=== PATIENT | female | born 1990 | race Caucasian/White ===

== ENCOUNTER 2020-02-14 11:57 | Inpatient (IN) | payer OTHER, SELFPAY ==
[~2020-02-14] VITALS: Ht 165.1 cm; Wt 186.0 kg
[~2020-02-14 11:57] MED LIST: PRENATAL VITS.
[2020-02-14 12:12] VITALS: BP 119/67
[2020-02-14] MEDS ORDERED: ACETAMINOPHEN 325 MG TAB PO ONE (12:15)
[2020-02-14] MEDS ORDERED: NACL 0.9% 1,000 ML IV ONE (12:20)
--- NOTE | 2020-02-14 12:22 | NUR ---
PT WHEELCHAIR ASSISTED TO BED 01
--- NOTE | 2020-02-14 12:35 | NUR ---
PT C/O PRODUCTIVE COUGH WITH WHILE PHLEGM, SOB, FEVER X 2 DAYS, TOOK TYLENOL AND MOTRIN 2 HRS AGO. DENIES CP, N/V/D, SICK CONTACT. HR EVEN BUT TACHYCARDIC; PATIENT STATES PAIN OF 7/10 AT THIS TIME; VSS; PATIENT POSITIONED FOR COMFORT; HOB ELEVATED; BEDRAILS UP X2; BED DOWN. ER MD MADE AWARE OF PT STATUS. PT IS IN ISO ROOM AND ON MONITOR.
[2020-02-14 12:45] LABS: BASOPHILS # (AUTO) 0.1 K/uL (0.00-0.22); BASOPHILS % (AUTO) 0.9 % (0.0-2.0); EOSINOPHILS % (AUTO) 0.1 % (0.0-4.0); HEMATOCRIT 40.2 % (36-48); LYMPHOCYTES # (AUTO) 2.1 K/uL (2.5-16.5); LYMPHOCYTES % (AUTO) 23.7 % (20.5-51.1); MEAN CORPUSCULAR HEMOGLOBIN 29 pg (27-31); MEAN CORPUSCULAR HGB CONC 32 g/dL (33-37); MEAN CORPUSCULAR VOLUME 88.2 fL (80-94); MONOCYTES # (AUTO) 0.6 K/uL (0.8-1.0); MONOCYTES % (AUTO) 6.2 % (1.7-9.3); NEUTROPHILS # (AUTO) 6.3 K/uL (1.8-7.7); NEUTROPHILS % (AUTO) 69.1 % (42.2-75.2); PLATELET COUNT (AUTO) 270 K/uL (140-450); RED BLOOD CELL COUNT(AUTO) 4.56 MIL/uL (4.20-5.40); RED CELL DISTRIBUTION WIDTH 13.3 % (11.6-13.7); WHITE BLOOD COUNT (AUTO) 9.1 K/uL (4.8-10.8)
--- NOTE | 2020-02-14 12:52 | NUR ---
COVID SWAB AND FLU SWAB OBTAINED AT BEDSIDE AND SENT TO THE LAB.
--- NOTE | 2020-02-14 13:00 | NUR ---
TWO COLD PACKS PLACED ON PT'S AXILLARY AREAS.
[2020-02-14 13:09] LABS: ALBUMIN 2.9 g/dL (3.4-5.0); ANION GAP 12.2 (8-16); CARBON DIOXIDE 30.5 mmol/L (21-32); CREATININE 0.9 mg/dL (0.6-1.3); POTASSIUM 3.7 mmol/L (3.5-5.1); TOTAL BILIRUBIN 0.6 mg/dL (0.0-1.0)
--- NOTE | 2020-02-14 13:10 | NUR ---
XRAY IS AT BEDSIDE.
[2020-02-14 13:11] LABS: LACTATE DEHYDROGENASE 324 U/L (81-234)
[2020-02-14 13:24] LABS: PROTHROMBIN TIME 10.1 secs (10.8-13.4)
[2020-02-14] MEDS ORDERED: AZITHROMYCIN 250 MG TAB PO ONE (13:25)
[2020-02-14] MEDS ORDERED: cefTRIAXone 1,000 MG VIAL ONE (13:31)
[2020-02-14 13:33] LABS: C-REACTIVE PROTEIN QUANT 18.8 mg/dL (0.0-0.9)
--- NOTE | 2020-02-14 14:10 | NUR ---
PT IS RESTING IN THE BED.
[2020-02-14] MEDS ORDERED: HYDROcodone/APAP 5/325 MG 1 TAB TAB PO PRN ×2 (15:00)
[2020-02-14] MEDS ORDERED: ACETAMINOPHEN 325 MG TAB PO PRN (15:00)
[2020-02-14] MEDS ORDERED: ONDANSETRON 4 MG/2 ML VIAL IVP PRN (15:00)
--- NOTE | 2020-02-14 15:15 | NUR ---
PT IS USING BATHROOM VIA BEDSIDE COMMODES.
--- NOTE | 2020-02-14 15:19 | NUR ---
RECEIVED VERBAL ORDER FROM DR. SAMANO TO GIVE PT ROCEPHIN 1G IVF STARTING TOMORROW.
[2020-02-14] MEDS: NACL 0.9% 1,000 ML IV SCH (15:28)
--- NOTE | 2020-02-14 15:28 | NUR ---
PT STATES SHE IS STILL NOT ABLE TO URINATE AT THIS TIME.
--- NOTE | 2020-02-14 17:00 | NUR ---
URINE SAMPLE OBTAINED AT BEDSIDE.
--- NOTE | 2020-02-14 17:00 | NUR ---
ASSISTED PT TO USE BATHROOM VIA BEDSIDE COMMODES.
--- NOTE | 2020-02-14 17:07 | NUR ---
OBTAINED VERBAL CONSENT FROM PT TO GIVE HER SISTER DEJA AGUILERA MEDICAL UPDATES. SPOKE WITH DEJA AGUILERA @ [phone].
[2020-02-14 17:56] LABS: APPEARANCE,URINE CLOUDY (CLEAR); BILIRUBIN,URINE 1+ (NEGATIVE); BLOOD, URINE NEGATIVE (NEGATIVE); COLOR,URINE BROWN (YELLOW); LEUKOCYTE ESTERASE ,URINE NEGATIVE (NEGATIVE); NITRITE, URINE NEGATIVE (NEGATIVE); PH,URINE 5.5 (5.0-9.0); UGLUCOSE 1+ (NEGATIVE)
--- NOTE | 2020-02-14 18:31 | NUR ---
PT IS RESTING IN THE BED WITH VSS.
--- NOTE | 2020-02-14 19:18 | NUR ---
REPORT RECEIVED FROM AMBER PALACIO FOR CONTINUITY OF CARE.
--- NOTE | 2020-02-14 19:20 | NUR ---
Pt report given to HAKEEM Thompson. Transfer of care at this time.
--- NOTE | 2020-02-14 19:59 | NUR ---
PT ON 6L NC AND SPO2 90%. NO RESP DISTRESS NOTED.
--- NOTE | 2020-02-14 22:00 | NUR ---
PT USING BEDSIDE COMMODE.
--- NOTE | 2020-02-15 00:15 | NUR ---
PT BEING TRANSFERRED TO TELE VIA [facility].
--- NOTE | 2020-02-15 00:20 | NUR ---
Patient will be admitted to care of DR SAMANO. Admited to TELE. Will go to room 118-A. Belongings list completed. Report to ARMAAN PALACIO.
[2020-02-15 01:00] VITALS: BP 128/50
--- NOTE | 2020-02-15 01:00 | NUR ---
RECEIVED REPORT FROM REGISTRY NURSE. PT IS AXOX4; AMHARIC SPEAKING. PT IS COVID-19 POSITIVE. RESPIRATIONS ARE EVEN AND UNLABORED, BREATHING TO 6LPM NC; SPO2: 94%. TELE MONITOR ATTACHED, SINUS TACHYCARDIA ON THE MONITOR. RFA 20G IV IS PATENT AND INTACT, WITH IV FLUIDS RUNNING PER ORDERS. MRSA SPECIMEN COLLECTED. PT ORIENTED TO THE ROOM; CALL LIGHT, LIGHTS, TV, PHONE. PROVIDED THE PATIENT WITH WATER. SAFETY MEASURES IN PLACE, CALL LIGHT WITHIN REACH, BED IN LOW POSITION. NO DISTRESS NOTED. WILL CONTINUE TO MONITOR.
--- NOTE | 2020-02-15 02:51 | NUR ---
PT COMPLAINS OF 5/10 HEADACHE PAIN. PRN PO NORCO GIVEN; MEDICATION EDUCATION PROVIDED. WILL REASSESS PAIN. PT IS SITTING UP IN BED WATCHING TV. NO ACUTE DISTRESS NOTED. WILL CONTINUE TO MONITOR.
[2020-02-15] MEDS: NACL 0.9% 1,000 ML IV SCH (03:26)
[2020-02-15 04:00] VITALS: BP 122/53
--- NOTE | 2020-02-15 07:21 | NUR ---
PATIENT HAS BEEN SCREENED AND CATEGORIZED MODERATE NUTRITION RISK. PATIENT WILL BE SEEN WITHIN 3-5 DAYS OF ADMISSION. 02/17/20-02/19/20 PRECIOUS SANTOS MS, RDN
--- NOTE | 2020-02-15 07:24 | NUR ---
ENDORSED TO DAYSHIFT NURSE, FOR CONTINUITY OF CARE. PT IS IN STABLE CONDITION.
--- NOTE | 2020-02-15 07:25 | NUR ---
RECEIVED PATIENT FROM NIGHT NURSE. PATIENT IS AWAKE AND ALERT. SITTING UP IN BED COMFORTABLY. RESP EVEN AND UNLABORED ON 6L NC. DENIES OF ANY SOB OR PAIN AT THIS TIME. PLAN OF CARE DISCUSSED WITH PATIENT. PATIENT VERBALIZED UNDERSTANDING. CALL LIGHT WITHIN REACH. WILL CONTINUE WITH CARE.
[2020-02-15 08:00] VITALS: BP 122/59
[2020-02-15 08:22] LABS: BASOPHILS % (AUTO) 0.4 % (0.0-2.0); HEMATOCRIT 39.2 % (36-48); HEMOGLOBIN 12.8 g/dL (12.0-16.0); LYMPHOCYTES # (AUTO) 2.5 K/uL (2.5-16.5); LYMPHOCYTES % (AUTO) 25.8 % (20.5-51.1); MEAN CORPUSCULAR HEMOGLOBIN 29 pg (27-31); MEAN CORPUSCULAR HGB CONC 33 g/dL (33-37); MONOCYTES # (AUTO) 0.5 K/uL (0.8-1.0); MONOCYTES % (AUTO) 5.2 % (1.7-9.3); NEUTROPHILS # (AUTO) 6.6 K/uL (1.8-7.7); NEUTROPHILS % (AUTO) 68.6 % (42.2-75.2); PLATELET COUNT (AUTO) 279 K/uL (140-450); RED CELL DISTRIBUTION WIDTH 13.7 % (11.6-13.7); WHITE BLOOD COUNT (AUTO) 9.6 K/uL (4.8-10.8)
[2020-02-15 08:42] LABS: ALBUMIN 2.7 g/dL (3.4-5.0); ANION GAP 10.5 (8-16); CARBON DIOXIDE 30.3 mmol/L (21-32); CREATININE 0.8 mg/dL (0.6-1.3); MAGNESIUM 2.1 mg/dL (1.8-2.4); POTASSIUM 3.8 mmol/L (3.5-5.1); TOTAL BILIRUBIN 0.5 mg/dL (0.0-1.0)
[2020-02-15] MEDS ORDERED: ENOXAPARIN 40 MG/0.4 ML SYR SUBQ SCH (09:00)
[2020-02-15] MEDS: BENZONATATE 100 MG CAPLF PO SCH ×3 (09:02→17:02)
--- NOTE | 2020-02-15 09:24 | NUR ---
MORNING ROUTINE MEDICATIONS GIVEN PER ORDER. PATIENT IS AWAKE AND ALERT. PATIENT HAS A MILD DRY COUGH, DENIES ANY SOB ON 6L NC. PATIENT TOLERATED MEDICATIONS WELL. DENIES PAIN AT THIS TIME. RIGHT FA 20 PATENT IVF NS 80 ML/HR. CALL LIGHT WITHIN REACH. WILL CONTINUE TO MONITOR.
[2020-02-15 12:00] VITALS: BP 142/62
--- NOTE | 2020-02-15 12:20 | NUR ---
PATIENT IS SITTING ON CHAIR BY BEDSIDE. NO NOTED DISTRESS. PATIENT CONTINUES ON 6L NC. O2SAT 92%. DENIES OF PAIN AT THIS TIME. CALL LIGHT WITHIN REACH. WILL CONTINUE TO MONITOR.
[2020-02-15] MEDS ORDERED: ED NON STOCK ORDER 1 EA MISC IV ONE (13:10)
[2020-02-15] MEDS ORDERED: AZITHROMYCIN 250 MG in DEXTROSE 5% 250 ML IV SCH (14:00)
--- NOTE | 2020-02-15 14:14 | NUR ---
PATIENT IS ENCOURAGED TO PROVIDE A SPUTUM SPECIMEN. CUP BY BEDSIDE. INSTRUCTED PATIENT TO CALL NURSE ONCE COLLECTED. PATIENT VERBALIZED UNDERSTANDING. ZITHROMAX IVPB STARTED. NO NOTED DISTRESS. CALL LIGHT WITHIN REACH. WILL CONTINUE TO MONITOR.
[2020-02-15 16:00] VITALS: BP 119/66
--- NOTE | 2020-02-15 17:25 | NUR ---
PATIENT IS SITTING ON CHAIR BY BEDSIDE. RESP EVEN AND UNLABORED. CONTINUES ON 6L NC. GIVEN TYLENOL PRN PER REQUEST FOR HEADACHE. WILL REASSESS FOR EFFECTIVENESS. ENCOURAGED TO USE CALL LIGHT NEEDED FOR ASSIST. PATIENT VERBALIZED UNDERSTANDING.
[2020-02-15] MEDS: CHLORHEXADINE GLUC 2% CLOTH TP SCH (18:02)
[2020-02-15] MEDS ORDERED: remdesivir COMMUNICATION ORDER 1 EA MISC MC PRN (19:20)
--- NOTE | 2020-02-15 19:20 | NUR ---
ENDORSED PATIENT TO NIGHT NURSE. PATIENT IN STABLE CONDITION.
--- NOTE | 2020-02-15 19:45 | NUR ---
RECEIVED REPORT AT BEDSIDE FROM ROSARIO PALACIO DAYSHIFT NURSE AT BEDSIDE FOR CONTINUITY OF CARE, PT IN STABLE CONDITION.
[2020-02-15 20:00] VITALS: BP 134/72
--- NOTE | 2020-02-15 20:30 | NUR ---
PT SITTING AT THE EDGE OF THE BED, WITH C/O NAUSEA. PT ASSISTED WITH BED HOOKS. 02 STATING AT 84-87% WITH 6 LITERS N/C. T 98.6 P 86 R 22 B/P 122/61. CALLED RT TO REQUEST OXYMIZER DUE TO LOW 02 ON THE N/C. PT HAD NO C/O OF SOB.
--- NOTE | 2020-02-15 21:00 | NUR ---
PT 120MCG LOVENOX SHOT WAS UNABLE TO BE GIVEN DUE TO PLUNGER WAS PULLED BY MISTAKE WHEN CAP WAS PULLED OFF, MEDICATION SPILT OUT. 2 LOVENOX SHOTS OF 60MCG TO MAKE 120. PT GIVEN A TOTAL OF 3 SHOTS TO REACH THE ORDERED 150MCG. PT ALSO GIVEN REQUESTED ZOFRAN IVP FOR NAUSEA.
--- NOTE | 2020-02-15 21:30 | NUR ---
PT WAS NOTED MOVING AROUND IN BED 02 WAS AT 80-82% CALLED RT TO RE-EVALUATE PT AND POSSIBLE PLACE ON OXYMIZER.
--- NOTE | 2020-02-15 22:06 | NUR ---
CALLED TO BEDSIDE PT DESAT TO 75% 6LNC PT WAS PLACED ON 10L OXY PT SPO2 87% AND STEADILY SLOWLY CLIMBING
[2020-02-15] MEDS ORDERED: ENOXAPARIN 60 MG/0.6 ML SYR SUBQ ONE (22:35)
--- NOTE | 2020-02-15 22:38 | NUR ---
CALLED TO BEDSIDE PT SPO2 LOW 80s PULSE OX AND OXY MASK READJUSTED AND SLOWLY COMING BACK UP SPO2 87% HR 99
[2020-02-15] MEDS: ENOXAPARIN 120 MG/0.8 ML SYR SUBQ SCH (22:44)
[2020-02-15] MEDS: ENOXAPARIN 30 MG/0.3 ML SYR SUBQ SCH (22:45)
--- NOTE | 2020-02-15 23:00 | NUR ---
PT C/O FO 03/23 HEADACHE , HOWEVER SHE DIDN'T WANT NORCO AND SAID THAT AFTER RELIEVING HER H/A NORCO GAVE HER ANOTHER HEADACHE. WILL SPEAK WITH PRIMARY/OR TWENTY ONE DEALER MD, REGARDING PT REQUESTS. PT STATING AT 90% WITH 10 LITERS OXYMIZER.
[2020-02-15] MEDS ORDERED: DEXTROSE 50% 50 ML SYR IVP PRN (23:35)
[2020-02-16] VITALS: BP 122/61
[2020-02-16] MEDS: oxyCODONE/APAP 5/325 MG 1 TAB TAB PO PRN (00:01)
--- NOTE | 2020-02-16 00:10 | NUR ---
SPOKE WITH ORTHOPEDIC SHOES SALESPERSON MD MCLAUGHLIN REGARDING PT REQUEST HE ORDERED PERCOCET 1 TAB FOR SEVERE PAIN . NORCO FOR SEVERE PAIN WAS D/C'D. ALSO SPOKE WITH MD REGARDING BLOOD GLUCOSE LEVEL OF THE LAST BLOOD DRAW. (301) (PT DENIES ANY HX OF DM2) . HE ORDERED HBA1C WELL F/S AND S/S PRN. PT INFORMED OF NEW ORDERS, SHE WAS GIVEN 1 TAB PERCOCET FOR C/O OF SEVERE HEADACHE. COMMODE PLACED AT BEDSIDE FOR TOILETING NEEDS. V/S FOLLOWS: T 97.3 P 103 R 20 B/P 134/72 02 93% WITH 10 LITERS OXYMIZER.
[2020-02-16] MEDS: guaiFENesin/CODEINE 100/10MG 5 ML UDC PO PRN ×2 (01:14→15:21)
--- NOTE | 2020-02-16 02:00 | NUR ---
PT IN BED ASLEEP NO S/S OF PAIN OR DISTRESS NOTED , PT WAS FOUND WITH OXYMIZER OFF. OXYMIZER PLACED BASK ON NOSE 02 WAS AT 79, BUT STARTED TO CLIMB UPWARDS OF 88% WILL CONTINUE TO MONITOR PT FOR 02 AND DISCOMFORT. ALL DROPLET AND UNIVERSAL FALLS PROTOCOL IN PLACE.
[2020-02-16 04:00] VITALS: BP 140/80
--- NOTE | 2020-02-16 04:00 | NUR ---
PT IN BED V/S FOLLOWS: T 98.0 P 93 R 20 B/P 140/80 02 93 WITH 15 LITERS OXYMIZER. PT ASSISTED TO COMMODE AND BACK. ALL DROPLET PRECAUTIONS IN PLACE.
--- NOTE | 2020-02-16 06:30 | NUR ---
PT FINGERSTICK IS 289, GIVEN 6 UNITS OF HUMALOG COVERAGE, SPOKE WITH RT DU TO PT 02 STAT DROPPING , PT PLACED ON 15LITERS 02 VIA NON REBREATHER MASK. 02 UP TO 90%.
[2020-02-16 06:39] LABS: BASOPHILS % (AUTO) 0.1 % (0.0-2.0); HEMATOCRIT 36.7 % (36-48); HEMOGLOBIN 11.6 g/dL (12.0-16.0); LYMPHOCYTES # (AUTO) 2.8 K/uL (2.5-16.5); LYMPHOCYTES % (AUTO) 23.2 % (20.5-51.1); MEAN CORPUSCULAR HEMOGLOBIN 28 pg (27-31); MEAN CORPUSCULAR HGB CONC 32 g/dL (33-37); MEAN CORPUSCULAR VOLUME 89.5 fL (80-94); MONOCYTES # (AUTO) 0.4 K/uL (0.8-1.0); MONOCYTES % (AUTO) 3.4 % (1.7-9.3); NEUTROPHILS % (AUTO) 73.3 % (42.2-75.2); PLATELET COUNT (AUTO) 318 K/uL (140-450); RED CELL DISTRIBUTION WIDTH 13.7 % (11.6-13.7); WHITE BLOOD COUNT (AUTO) 12.3 K/uL (4.8-10.8)
[2020-02-16 06:53] LABS: ANION GAP 7.2 (8-16); CREATININE 0.8 mg/dL (0.6-1.3); POTASSIUM 4.2 mmol/L (3.5-5.1)
[2020-02-16] MEDS: INSULIN LISPRO SLIDING SCALE 100 UNITS/ML VIAL SUBQ PRN ×4 (06:57→21:48)
[2020-02-16] MEDS: BLOOD GLUCOSE MONITORING 1 DEV DEV FS SCH ×4 (07:00→21:00)
--- NOTE | 2020-02-16 07:15 | NUR ---
RECEIVED BEDSIDE REPORT FROM ROUGH AND TRUING MACHINE OPERATOR NURSE, ERNESTO, FOR CONTINUITY OF CARE. AAOX4, ABLE TO MAKE NEEDS KNOWN. PATIENT IS ON 15LPM VIA NONREBREATHER. DENIES OF ANY SOB OR PAIN AT THIS TIME. IV SITE ON THE R HAND 24G RUNNING TKO. PLAN OF CARE DISCUSSED WITH PATIENT AND VERBALIZED UNDERSTANDING. DROPLET ISOLATION IN PLACE FOR + COVID-19. CALL LIGHT WITHIN REACH. WILL CONTINUE WITH CARE.
[2020-02-16 07:34] LABS: MAGNESIUM 2.2 mg/dL (1.8-2.4); PHOSPHORUS 2.9 mg/dL (2.5-4.9)
[2020-02-16 08:00] VITALS: BP 138/75
--- NOTE | 2020-02-16 08:10 | NUR ---
V/S TAKEN AND IS WNL. PATIENT IS ON THE NON-REBREATHER MASK AT 15LPM O2, ASLEEP AND IN BED. NO SIGNS OF DISTRESS NOTED. WILL CONTINUE TO MONITOR.
--- NOTE | 2020-02-16 09:56 | NUR ---
PATIENT'S NON-REBREATHER MASK IS ON THE FLOOR. PATIENT AWAKENS WITH SHAKING AND CLAIMS TO HAVE NO SOB OR PAIN. V/S TAKEN WITH SAO2 AT 75%. WILL REPORT TO RT, CHARGE NURSE, AND MD. WILL CONTINUE TO MONITOR.
--- NOTE | 2020-02-16 09:58 | NUR ---
CALLED RT PUNEET ABOUT PATIENT'S DESATURATION TO 75%. RT WILL ASSESS PATIENT. CHARGE NURSE, TYSON, IS AWARE AND STATES RAPID RESPONSE NOT TO BE CALLED UNTIL RT EVALUATES PATIENT. WILL CONTINUE TO MONITOR.
[2020-02-16] MEDS: DEXAMETHASONE 4 MG/ML VIAL IVP SCH (10:04)
[2020-02-16] MEDS: BENZONATATE 100 MG CAPLF PO SCH ×3 (10:04→16:55)
--- NOTE | 2020-02-16 10:05 | NUR ---
MORNING MEDICATIONS GIVEN. RT BY THE BEDSIDE, ENCOURAGING PATIENT TO DEEP BREATH SAO2 AT 84% AND SLOWLY INCREASING ON 15LPM O2 VIA NON-REBREATHER. PATIENT COMPLAINS OF NO PAIN, NO SHORTNESS OF BREATH, JUST CLAIMS TO BE REALLY TIRED. WILL CONTINUE TO MONITOR.
--- NOTE | 2020-02-16 10:10 | NUR ---
DR. MCLAUGHLIN ON THE PHONE WITH RTPUNEET, NEW ORDERS TO PLACE 6LPM O2 VIA NC WITH 15LPM O2 VIA NON-REBREATHER MASK TO KEEP SAO2 ABOVE 87%. WILL FOLLOW THROUGH. WILL CONTINUE TO MONITOR.
[2020-02-16] MEDS: ENOXAPARIN 120 MG/0.8 ML SYR SUBQ SCH ×2 (10:11→21:52)
[2020-02-16] MEDS: ENOXAPARIN 30 MG/0.3 ML SYR SUBQ SCH ×2 (10:12→21:52)
--- NOTE | 2020-02-16 10:18 | NUR ---
was called to room due to pt desat to 75% pt was on 100% nrb at the time, molly olea at bedside, talked to dr. morrell and doctor ordered to place 6lnc with the nrb and o2 sat came up to 87%
[2020-02-16] MEDS ORDERED: CLINICAL MONITORING MC PRN (10:25)
[2020-02-16] MEDS ORDERED: remdesivir 200 mg in NACL 0.9% 100 ML IV SCH (11:00)
[2020-02-16 12:00] VITALS: BP 119/72
--- NOTE | 2020-02-16 12:25 | NUR ---
10 UNITS OF INSULIN GIVEN FOR BLOOD SUGAR OF 354. NO SIGNS OF DISTRESS NOTED, PATIENT CLAIMS TO STILL BE REALLY SLEEPY AND SAO2 REMAINS TO BE AT 88%, 15LPM O2 VIA NON-REBREATHER MASK AND 6LPM O2 VIA NC GIVEN SIMULTANEOUSLY. ENCOURAGED TO DEEP BREATH AND PRONE, PATIENT VERBALIZES UNDERSTANDING. WILL CONTINUE TO MONITOR.
--- NOTE | 2020-02-16 13:00 | NUR ---
DR. MCLAUGHLIN CLOTH HANDLER WITH PATIENT REGARDING PLASMA TRANSFUSION AND UPDATES ABOUT CONDITION. PATIENT TEACHINGS ABOUT BLOOD/PLASMA TRANSFUSION GIVEN BY DR. MCLAUGHLIN AND PATIENT VERBALIZES UNDERSTANDING. WILL CONTINUE TO MONITOR.
--- NOTE | 2020-02-16 13:25 | NUR ---
PATIENT HAS SIGNED CONVALESCENT PLASMA/ BLOOD TRANSFUSION CONSENT. PATIENT VERBALIZES UNDERSTANDING AND NO FURTHER QUESTIONS WERE ASKED. WILL CONTINUE TO MONITOR.
--- NOTE | 2020-02-16 14:55 | NUR ---
FOUND PATIENT DESATURATED AT 65%, NON-REBREATHER MASK AND NASAL CANNULA WAS REMOVED BY PATIENT. MASK AND NASAL CANNULA WERE REINSERTED AND SAO2 INCREASE TO 90%. PATIENT ABLE TO BE AWAKEN BUT IS CONFUSED. EXPLAINED THE NECESSITY OF NON-REBREATHER MASK AND NASAL CANNULA REPEATEDLY AND PATIENT VERBALIZES UNDERSTANDING. WILL REPORT TO CHARGE NURSE, WILL CONTINUE TO MONITOR.
--- NOTE | 2020-02-16 15:34 | NUR ---
CALLED RT TEIXEIRA ABOUT PATIENT'S DESATURATION OF 85%, NON-REBREATHER MASK AND NASAL CANNULA STILL IN PLACE. WILL CONTINUE TO MONITOR.
[2020-02-16 16:00] VITALS: BP 119/75
[2020-02-16] MEDS: CHLORHEXADINE GLUC 2% CLOTH TP SCH (16:55)
--- NOTE | 2020-02-16 17:30 | NUR ---
PATIENT'S NON-REBREATHER MASKED IS FOUND AWAY FROM THE PATIENT, REPEATEDLY GAVE TEACHINGS AND BENEFITS OF MAINTAINING MASK, PATIENT VERBALIZES UNDERSTANDING. WILL CONTACT MD ABOUT REPEATED INCIDENT. WILL CONTINUE TO MONITOR.
--- NOTE | 2020-02-16 17:35 | NUR ---
PAGED DR. IQBAL ABOUT PATIENT'S NEED FOR RESTRAINTS DUE TO REPEATED REMOVAL OF NON-REBREATHER MASK AND NASAL CANNULA. WILL CONTINUE TO MONITOR.
--- NOTE | 2020-02-16 17:44 | NUR ---
PATIENT PLACED ON RESTRAINTS, PATIENT IS AWARE AND VERBALIZES UNDERSTANDING. NO SIGNS OF DISTRESS NOTED. SAO2 INCREASED TO 93%. WILL CONTINUE TO MONITOR.
--- NOTE | 2020-02-16 19:15 | NUR ---
ENDORSED TO FAMILY SOCIOLOGIST RN, ERNESTO, FOR CONTINUITY OF CARE.
--- NOTE | 2020-02-16 19:15 | NUR ---
ENDORSEMENT RECEIVED FROM DEEPAK PALACIO DAYSHIFT NURSE FOR CONTINUITY OF CARE.
[2020-02-16 20:00] VITALS: BP 136/89
--- NOTE | 2020-02-16 20:28 | NUR ---
PT IN BED SITTING UP WITH RESTRAINTS RELEASED AND MASK OVER FACE. NASAL CANNULA RUNNING 6 LITERS REPOSITIONED ON FACE. PT IS AOX3-4 WITH NO C/O OF PAIN SHE CONTINUES TO HAVE A DRY AND NONPRODUCTIVE COUGH. PT WAS ASSISTED TO THE COMMODE. PT ALSO RECEIVED ASSISTANCE WITH EATING AND DRINKING AT BEDSIDE. V/S FOLLOWS: T 98.4 P 103 R 28 AND SHALLOW PT ON 15 LITERS NON REBREATHER AND 6 LITERS NASAL CANNULA SHE IS STATING BETWEEN 84-86%. OTHER V/S FOLLOWS: T 98.4 P 103 B/P 137/88. ALL DROPLET PRECAUTIONS IN PLACE.
--- NOTE | 2020-02-16 20:45 | NUR ---
PT LINENS CHANGED , SHE HAD POOR APPETITE AT THIS TIME, SHE WAS MADE COMFORTABLE AND SOFT RESTRAINTS PLACE BACK ON WRISTS. IV SITE ON RFA 20 GUAGE INTACT AND RUNNING TO [facility]. FAMILY UPDATED.
--- NOTE | 2020-02-16 21:45 | NUR ---
PT HEARD YELLING DOWN THE HALLWAY FOR HELP. PT FOUND IN BED WITH MASK OFF OF MOUTH AND NOSE.. PT ALSO PULLED OUT HER IV SITE. RAPID RESPONSE WAS CALLED AND PT GIVEN NEW IV SITE ON LEFT HAND 22 GUAGE. MD EID SUGGEST THAT PT BE PLACED ON A BIPAP MACHINE. PT PLACED ON BIPAP MACHINE 02 WENT UP TO THE LOW 90;S. PT GIVEN ALL SCHEDULED MEDS OF LOVENOX SB SHOT 150MCG (2 SHOTS) WELL A FINGERSTICK WHICH WAS 309. PT GIVEN SQ OF HUMALOG COVERAGE PER S/S. V/S FOLLOWS: T 97.7 P 82 R 38 P 82 02 90% B/P 127/81. PT PLACED BACK ON RESTRAINTS DUE TO CONFUSION.
--- NOTE | 2020-02-16 21:50 | NUR ---
TURNTABLE ENGINEER CALLED FOR DESATURATION. PT WAS SWITCHED FROM NRB MASK TO BiPAP. BiPAP SETTINGS IPAP 16, EPAP 8, BACK RR 12, FiO2 100%. MACHINE PLUGGED IN RED OUTLET. ALARMS SET AND AUDIBLE. PT TOLERATING WELL. WE CONTINUE TO MONITOR PT.
[2020-02-17] VITALS (11 sets, daily range): BP systolic 87–137; BP diastolic 52–89
--- NOTE | 2020-02-17 | NUR ---
PAGED DR. LUNDBERG WAS PAGED. CALLED BACK, MADE HIM AWARE ABOUT ORDER FOR CONVALESCENT PLASMA TO BE ORDERED BY HIM.
--- NOTE | 2020-02-17 03:19 | NUR ---
PAGED DR. SRIVASTAVA, CALLED BACK. REPORTED TO DR. SRIVASTAVA THAT MASTIC FLOOR LAYER WAS CALLED ON PT FOR DESAT. SWITCHED PT FROM NRB MASK TO BiPAP AND SPO2 IMPROVED TO 90%.
--- NOTE | 2020-02-17 04:59 | NUR ---
PT KEPT REMOVED/RE-ADJUSTED MASK A FEW TIMES AND DESAT TO HIGH 7Os-LOW 80s MASK WAS REPLACED PROPERLY SPO2 RETURNED > 86% GRADUALLY
[2020-02-17] MEDS: oxyCODONE/APAP 5/325 MG 1 TAB TAB PO PRN (06:52)
[2020-02-17] MEDS: BLOOD GLUCOSE MONITORING 1 DEV DEV FS SCH ×2 (07:01→11:30)
[2020-02-17] MEDS: INSULIN LISPRO SLIDING SCALE 100 UNITS/ML VIAL SUBQ PRN ×2 (07:03→13:08)
--- NOTE | 2020-02-17 07:25 | NUR ---
RECEIVED REPORT FROM PROJECT CREW WORKER NURSE. PATIENT LYING DOWN IN BED ON BIPAP, COOPERATIVE BUT HAS INTERMITTENT PULLING OUT OF BIPAP MASK AND SPO2 MONITOR. AAOX2, COOPERATIVE, SKIN INTACT. MORBIDLY OBESE. NO IV SITE INTACT, PER NIGHT RN, PATIENT PULLED OUT. WILL INSERT NEW IV LINE LATER. RESPIRATIONS DIMINISHED, ON BIPAP WITH O2 SAT 88-92%. REVIEWED PLAN OF CARE WITH PATIENT. REINFORCEMENT NEEDED. SAFETY MEASURES IN PLACE, CALL LIGHT WITHIN REACH. WILL CONTINUE TO MONITOR.
--- NOTE | 2020-02-17 07:28 | NUR ---
rec' d pt on jose v60 bipap settings 16/8 rr12 fio2 100% alarms on audible and bvm at hob and bipap is plugged into red outlet, b\s are diminished bilaterally, pt wearing med face mask. pt keeps taking bipap off molly sprague at bedside.
[2020-02-17 08:07] LABS: BASOPHILS % (AUTO) 0.2 % (0.0-2.0); HEMATOCRIT 37.2 % (36-48); HEMOGLOBIN 11.5 g/dL (12.0-16.0); LYMPHOCYTES # (AUTO) 2.6 K/uL (2.5-16.5); LYMPHOCYTES % (AUTO) 18.8 % (20.5-51.1); MEAN CORPUSCULAR HEMOGLOBIN 28 pg (27-31); MEAN CORPUSCULAR HGB CONC 31 g/dL (33-37); MEAN CORPUSCULAR VOLUME 90.6 fL (80-94); MONOCYTES # (AUTO) 0.7 K/uL (0.8-1.0); MONOCYTES % (AUTO) 5.2 % (1.7-9.3); NEUTROPHILS # (AUTO) 10.6 K/uL (1.8-7.7); NEUTROPHILS % (AUTO) 75.8 % (42.2-75.2); PLATELET COUNT (AUTO) 378 K/uL (140-450); RED BLOOD CELL COUNT(AUTO) 4.11 MIL/uL (4.20-5.40); RED CELL DISTRIBUTION WIDTH 13.8 % (11.6-13.7); WHITE BLOOD COUNT (AUTO) 13.9 K/uL (4.8-10.8)
[2020-02-17 08:14] LABS: ANION GAP 8.8 (8-16); CARBON DIOXIDE 32.7 mmol/L (21-32); POTASSIUM 4.5 mmol/L (3.5-5.1)
[2020-02-17 08:28] LABS: ALBUMIN 2.3 g/dL (3.4-5.0); BILIRUBIN,DIRECT 0.3 mg/dL (0.0-0.3); TOTAL BILIRUBIN 0.5 mg/dL (0.0-1.0)
[2020-02-17] MEDS: ENOXAPARIN 120 MG/0.8 ML SYR SUBQ SCH (09:00)
[2020-02-17] MEDS: ENOXAPARIN 30 MG/0.3 ML SYR SUBQ SCH (09:00)
[2020-02-17 09:27] LABS: MAGNESIUM 2.5 mg/dL (1.8-2.4); PHOSPHORUS 2.3 mg/dL (2.5-4.9)
--- NOTE | 2020-02-17 10:00 | NUR ---
PATIENT LEFT NOSTRILE BLEEDING, CONTINUES TO BE ON BIPAP WITH O2 SAT AT 80-90'S. WILL CONTINUE TO MONITOR.
--- NOTE | 2020-02-17 10:25 | NUR ---
MANUFACTURING CONTROLLER NOTE: Patient's Orientation Person Situation Place Time Information Provided By BRADY IZQUIERDO - Comments SW WAS UNABLE TO MEET PATIETN AT BEDSIDE DUE TO MEDICAL CONDITION. Ornamenter Hand, Realtionship and Phone Number BRADY DAWSON [phone] Healthcare Power of Absence Management Consultant No Does Patient Have a POLST No Identifying Problems No Social Work Triggers Is A Social Work Consult Needed No Mandate Report Filed No Explanation Of Identifying Problems PATIENT IS A 29-YEAR-OLD FEMALE ADMITTED FOR ACUTE HYPOXIC RESPIRATORY FAILURE. PATIENT HAS NO PERTINENT PMHX. Admitted From Home Pre-Admission Level Of Functioning Status Independent/Ambulatory Prior Resources/Services Used In Last 12 Months No Prior Resources Used Prior DME No Prior DME Used Living Situation Apartment Lives With Family Patient Had Caregiver No Home Support No Caregiver Issues Financial Issues No Known Financial Issue Referral To The Financial Counselor Needed No Pt/Rep Participated In Discharge Plan Yes Patient/Family Agress With Discharge Plan Yes Discharge Plan Comments TENTATIVE DISCHARGE PLAN IS FOR PATIENT TO RETURN HOME. DC Plan Status Initiated
[2020-02-17] MEDS: BENZONATATE 100 MG CAPLF PO SCH ×2 (10:31→12:56)
[2020-02-17] MEDS ORDERED: remdesivir 100 mg in NACL 0.9% 100 ML IV SCH (11:00)
[2020-02-17] MEDS: DEXAMETHASONE 4 MG/ML VIAL IVP SCH (12:02)
--- NOTE | 2020-02-17 13:09 | NUR ---
SCHEDULED MEDICATIONS DUE GIVEN. WILL CONTINUE TO MONITOR.
--- NOTE | 2020-02-17 14:00 | NUR ---
DR. GUTIÉRREZ AT BEDSIDE REVIEWING PLAN OF CARE. PER DR. GUTIÉRREZ, HE WANTS PATIENT IN ICU FOR INTUBATION. NOTIFIED BLOWER AND COMPRESSOR ASSEMBLER AND HEALTH OCCUPATIONS TEACHER. WILL CONTINUE TO MONITOR.
--- NOTE | 2020-02-17 16:50 | NUR ---
PAGED DR. GUTIÉRREZ TO ASK IF HE WANTS TO TRY PATIENT ON HIGH FLOW PER RESPIRATORY REQUEST. PER DR. GUTIÉRREZ, OK TO TRY HIGH FLOW BUT HE STILL WANTS PATIENT IN ICU. NOTIFIED RESPIRATORY THERAPIST RAMSEY. WILL CONTINUE TO MONITOR.
--- NOTE | 2020-02-17 17:30 | NUR ---
PATIENT TRANSFERRED TO ICU BED 7 AND GAVE REPORT TO RN AT ICU. PATIENT IN STABLE CONDITION. WILL CONTINUE TO MONITOR.
--- NOTE | 2020-02-17 17:35 | NUR ---
PT TRANSFERRED FROM TELE, PT ON NRB MASK FOR TRANSFER, PT ABLE TO TRANSFER FROM ONE BED TO ANOTHER, O2SAT DECREASED TO 75-80% PLACED PT ON BIPAP RT AT BEDSIDE, PT OX3, ALL SAFETY MEASURES IN PLACE, CALL JEFFRIES WITHIN REACH.
--- NOTE | 2020-02-17 17:45 | NUR ---
PT CONTINUES TO DESAT IN MID 75% TO 80%, ON BIPAP, PER REPORT, AWAITING ON EQUIPMENT FROM [facility] TO PLACE PT ON HIGH FLOW O2 PER DR GUTIÉRREZ.
--- NOTE | 2020-02-17 17:52 | NUR ---
PT REPEATEDLY TAKES OFF BIPAP MASK DESPITE EDUCATION AND RISKS EXPLAINED, DR CRUZ PAGED AND CALLED BACK, NOTIFIED THAT PT IS STILL IN 70-75% ON BIPAP WITH 100%FIO2, RECOMMEND INTUBATION, WILL CALL ER DOCTOR.
[2020-02-17] MEDS ORDERED: PROPOFOL 1000 MG/100 ML PREMIX 0 ML IV ONE (18:06)
--- NOTE | 2020-02-17 18:13 | NUR ---
RSI ROCURONIUM 2MG @1811 SUCC 150 1812 ETT 7.5, PLACED BY DR EDWARDS, GOOD CHEST RISE AND FALL CO2 DETECTOR YELLOW. STAT CHEST XRAY ORDERED
--- NOTE | 2020-02-17 18:25 | NUR ---
PROPOFOL DRIP STARTED PER DR EDWARDS AT 25MCG, DRY WT 185KG.
--- NOTE | 2020-02-17 18:45 | NUR ---
O2SAT IN 30-50, RT AT BEDSIDE, GETTING VENTILATOR SET UP, RADIOLOGY AT BEDSIDE FOR CXR
--- NOTE | 2020-02-17 18:47 | NUR ---
PT HR DECREASED TO 47, UNABLE TO DETECT PULSE, CODE BLUE CALLED Addendum: 02/17/20 at 2057 by Marie Cosby RN SEE KATHERYN BLUE SHEET
--- NOTE | 2020-02-17 18:50 | NUR ---
FAMILY CALLED AT NUMBER IN FACE SHEET, SPOKE WITH RAMESH AGUILERA, PT'S FATHER ALSO WITH RAMESH, NOTIFIED OF INTUBATION AND CRITICAL CONDITION.
--- NOTE | 2020-02-17 18:58 | NUR ---
DR NANCY HILL
[2020-02-17] MEDS ORDERED: PROPOFOL 1000 MG/100 ML PREMIX 100 ML IV ONE ×2 (19:06→19:17)
--- NOTE | 2020-02-17 19:10 | NUR ---
DR CRUZ NOTIFIED OF PT CONDITION, ORDER RECEIVED FOR LEVOPHED DRIP FOR BP
[2020-02-17] MEDS ORDERED: NOREPINEPHRINE 4 MG/4 ML VIAL IV ONE (19:15)
[2020-02-17] MEDS: PROPOFOL 1000 MG/100 ML PREMIX 100 ML IV PRN ×2 (19:25→20:37)
--- NOTE | 2020-02-17 19:34 | NUR ---
PT PRONOUNCED AT [address] EDWARDS. RAMESH ROSARIO CALLED AND NOTIFIED. DR CRUZ CALLED.
[2020-02-17] MEDS ORDERED: SUCCINYLCHOLINE CHLORIDE 200 MG/10 ML VIAL IVP ONE (20:00)
[2020-02-17] MEDS ORDERED: ROCURONIUM 50 MG/5 ML VIAL IV ONE (20:00)
--- NOTE | 2020-02-17 20:07 | NUR ---
PHONE CALL TO [facility]; SPOKE WITH PAT ENNIS; QUESTIONS ANSWERED.BODY RELEASED. CASE # [id number]
--- NOTE | 2020-02-17 20:16 | NUR ---
PHONE CALL TO MARKETING ANALYTICS SPECIALIST'S OFFICE.SPOKE WITH ROBERTH.QUESTIONS ANSWERED.PER ROBERTH, MARKETING ANALYTICS SPECIALIST WILL CALL NURSE BACK.AWAITING CALL FROM MARKETING ANALYTICS SPECIALIST
--- NOTE | 2020-02-17 20:20 | NUR ---
RECEIVED CALL FROM TORIE (SISTER), NOTIFIED OF PT'S PASSING.
--- NOTE | 2020-02-17 21:45 | NUR ---
RECEIVED CALL FROM [employer], ESTRELLITA PLASCENCIA. CORONOR TO RECEIVE REPORT FROM MORTUARY DUE TO COVID-19. BODY IS NOW RELEASED. Addendum: 02/17/20 at 2249 by Lionel Phoenix RN NO CASE NUMBER GIVEN.
[2020-02-17 23:18] LABS: LACTATE DEHYDROGENASE 354 IU/L (0-214)
--- NOTE | 2020-02-18 | NUR ---
CALLED TO BEDSIDE ROUGHLY 1800 FOR INTUBATION EZ CAP COLOR CHANGE CONDENSATION IN ETT CHEST RISE ETT 7.5 @ 23CM PT PLACED ON VENT ETT VERIFIED W/ XRAY A FEW MOMENTS LATER KATHERYN WAS ALSO CALLED AND CALLED CODE ROUGHLY 193
--- NOTE | 2020-02-18 00:20 | NUR ---
PHONE CALL TO PTS KARI IZQUIERDO; BRADY GAVE THE PHONE TO HIS DAUGHTER AMY WHO SPEAKS CITIZEN OF [place]. INFORMED FAMILY RE; CONTRACTED MORTUARY [facility], PER AMY TO GO AHEAD AND CALL THE [facility] SINCE THEY HAVE NOT DECIDED ANY MORTUARY YET.
--- NOTE | 2020-02-18 00:30 | NUR ---
PHONE CALL TO [facility], SPOKE WITH NATALIYA; QUESTIONS ANSWERED.MADE AWARE THAT IS COVID POSITIVE AND DOUBLE BAGGED.ESTIMATED CASING MACHINE OPERATOR TIME INI 3 HOURS. PHONE CALL MADE TO AMY [phone], MADE AWARE OF THE ABOVE.AMY SAID SHE WILL GIVE THEM A CALL LATER. HAKEEM WHITTEN AWARE
--- NOTE | 2020-02-18 01:01 | NUR ---
PT'S BELONGINGS GIVEN TO SISTER AMY.
--- NOTE | 2020-02-18 02:37 | NUR ---
[facility] Addendum: 02/18/20 at 0311 by Lionel Phoenix RN [facility]
== END 2020-02-18 02:37 | disposition expired | DRG 720 ==
LOC: MED 11:57 → EEVIPCON 11:57 → MTU 15:02 → MIC 02-17 18:48
PROVIDERS: ADMIT Hospitalist; ATTEND Hospitalist
PROC: 5A09357 Assistance with Respiratory Ventilation, Less than 24 Consecutive Hours, Continuous Positive Airway Pressure (ICD-10-PCS; principal; 2020-02-17)
DX: A41.89 Other specified sepsis (principal); U07.1 COVID-19; J96.01 Acute respiratory failure with hypoxia; E66.01 Morbid (severe) obesity due to excess calories; E86.9 Volume depletion, unspecified; J12.89 Other viral pneumonia; Z68.44 Body mass index [BMI] 60.0-69.9, adult; E44.0 Moderate protein-calorie malnutrition
CPT/HCPCS: 36415; 71045; 80048; 80053; 80076; 81003; 82550; 82728; 82948; 83036; 83605; 83615; 83625; 83735; 83880; 84100; 84484; 85025; 85379; 85384; 85610; 85730; 86140; 86900; 86901; 87040; 87070; 87081; 87086; 87205; 87804; 93005; 94660; 96361; 96365; 99291; J0330; J0456; J0696; J1100; J1650; J2405; J2704; J3490; J7030; J7060; Q0092; U0003-CS